=== PATIENT | female | born 1995 | race Caucasian/White ===

== ENCOUNTER → 2021-09-29 | Outpatient (CLI) | payer OTHER | LOC: COL.VAS 14:06 | DX: E84.9 Cystic fibrosis, unspecified (principal) ==

== ENCOUNTER 2023-05-13 02:00 | Emergency (ER) | payer BC ==
[~2023-05-13] VITALS: Ht 157.5 cm; Wt 64.1 kg
[~2023-05-13 02:00] MED LIST: AMOXICILLIN 50500 MG PO
[2023-05-13 02:04] VITALS: BP 197/102; PULSE 83; TEMP 98.6
[2023-05-13] MEDS ORDERED: AMOXICILLIN 8751 TAB PO (02:17)
== END 2023-05-13 02:33 | disposition home or self-care (01) ==
LOC: COL.ER 02:00
DX: H60.92 Unspecified otitis externa, left ear (principal); H66.92 Otitis media, unspecified, left ear; E10.9 Type 1 diabetes mellitus without complications

== ENCOUNTER 2023-07-06 04:40 | Emergency (ER) | payer SELFPAY ==
[~2023-07-06] VITALS: Ht 157.5 cm; Wt 63.6 kg
[~2023-07-06 04:40] MED LIST changes: +ACTIGALL 300MG300 MG PO; +AMOXICILLIN 8751 TAB PO; +APRESOLINE 25MG25 MG PO; +BUMEX2 MG PO; +COREG 25MG25 MG/TAB PO; +COZAAR 25MG25 MG/TAB PO; +CREON 120000 U-1 ECC PO; +CYMBALTA 30MG30 MG PO; +DITROPAN XL10 MG PO; +EFFEXOR 3737.5 MG/TA PO; +LEVEMIR FLEX100 U/ML SQ; +LEVEMIR100 U/ML SQ; +LEXAPRO 5MG5 MG PO; +LOKELMA10 GM PO; +LYRICA 150MG C150 MG PO; +MAG-OX 400400 MG/TAB PO; +MASON NATURAL2000 IU PO; +MELATONIN ER10 MG PO; +MULTIPLE VITAMI1 CAP PO; +NATURAL IRON65 MG PO; +NORG-EE 0.18-01 EACH PO; +NORVASC 10MG10 MG PO; +NOVOLOG FLEX100 U/ML SQ; +PRILOSEC 20MG20 MG PO; +RENVELA800 MG PO; +SINGULAIR 110 MG/TAB PO; +TRI-LO-SPRINTE1 EACH PO; +TRIKAFTA 100-51 EACH PO; +ZAROXOLYN5 MG PO; +ZYRTEC 10MG10 MG PO; +[UNRECOGNIZED DRUG - OTHER] PO
[2023-07-06] MEDS ORDERED: NORCO 325 MG-51 TAB PO (05:07)
[2023-07-06] MEDS ORDERED: LYRICA 150MG C150 MG PO (05:07)
[2023-07-06 05:19] VITALS: BP 151/77; PULSE 94; TEMP 97.4
[2023-07-07] MEDS ORDERED: ZOFRAN 4MG T4 MG/TAB PO (10:41)
== END 2023-07-06 05:19 | disposition home or self-care (01) ==
LOC: COL.ER 04:40
DX: E11.40 Type 2 diabetes mellitus with diabetic neuropathy, unspecified (principal)
CPT/HCPCS: J2270

== ENCOUNTER 2023-07-07 09:57 | Emergency (ER) | payer SELFPAY ==
[~2023-07-07] VITALS: Ht 157.5 cm; Wt 63.6 kg
[~2023-07-07 09:57] MED LIST changes: +NORCO 325 MG-51 TAB PO
[2023-07-07 10:02] VITALS: TEMP 98.3
[2023-07-07] MEDS ORDERED: ZOFRAN 4MG T4 MG/TAB PO (10:41)
[2023-07-07 10:48] VITALS: BP 146/78; PULSE 78
== END 2023-07-07 10:49 | disposition home or self-care (01) ==
LOC: COL.ER 09:57
DX: R11.2 Nausea with vomiting, unspecified (principal); E11.40 Type 2 diabetes mellitus with diabetic neuropathy, unspecified
CPT/HCPCS: J1790

== ENCOUNTER → 2023-07-12 | Outpatient (CLI) | payer OTHER ==
[~2023-07-12] MED LIST changes: +ZOFRAN 4MG T4 MG/TAB PO
[2023-07-12 11:41] LABS: BASO # 0.2 K/mm3 (0.0-0.2); BASO % 2.2 % (0.0-2.0); EOS # 0.6 K/mm3 (0.0-0.7); EOS % 6.4 % (0.0-4.0); GRAN # 5.2 K/mm3 (1.4-6.5); GRAN % 60.2 % (42.2-75.2); HEMOGLOBIN 10.2 g/dl (12.5-16.0); LYMPH # 1.8 K/mm3 (1.2-3.4); LYMPH % 20.9 % (20.0-51.0); MEAN CELL VOLUME 87 fl (80.0-100.0); MEAN CORPUSCULAR HEMOGLOBIN 31 pg (27-31); MEAN CORPUSCULAR HGB CONC 35 g/dl (33.0-37.0); MEAN PLATELET VOLUME 10.5 fl (7.4-10.4); MONO # 0.8 K/mm3 (0.1-0.6); MONO % 9.6 % (1.7-9.3); PLATELET COUNT 446 K/mm3 (130-400); REDCELL DISTRIBUTION WIDTH-CV 13.7 % (11.5-14.5)
[2023-07-12 11:46] LABS: HEMATOCRIT 28.8 % (37.0-47.0)
[2023-07-12 11:57] LABS: ALBUMIN 2.8 gm/dL (3.5-5.0); BILIRUBIN,TOTAL 0.3 mg/dL (0.2-1.2); CALCIUM 9.1 mg/dL (8.4-10.2); CREATININE, serum 3.59 mg/dL (0.57-1.11); MAGNESIUM 2.3 mg/dL (1.6-2.6); POTASSIUM 4.9 mmol/L (3.5-4.5); TOTAL PROTEIN 7.3 gm/dL (6.2-8.1)
[2023-07-12 12:21] LABS: THYROID STIMULATING HORMONE 1.345 uIU/mL (0.350-4.940)
== END ==
LOC: COL.LAB 10:45
PROVIDERS: Registered Nurse
DX: G62.9 Polyneuropathy, unspecified (principal); N18.4 Chronic kidney disease, stage 4 (severe); D64.9 Anemia, unspecified; Z79.899 Other long term (current) drug therapy

== ENCOUNTER 2023-09-19 18:27 | Emergency (ER) | payer OTHER ==
[~2023-09-19] VITALS: Ht 157.5 cm; Wt 67.3 kg
[~2023-09-19 18:27] MED LIST changes: +LEXAPRO20 MG PO
[2023-09-19 18:35] VITALS: BP 153/73; TEMP 99.7
[2023-09-19] MEDS ORDERED: DOXYCYCLINE HY100 MG PO (19:22)
[2023-09-19] MEDS ORDERED: Doxycycline Monohydrate 100 MG CAP PO ONE (19:30)
[2023-09-19 19:36] VITALS: PULSE 89
== END 2023-09-19 19:36 | disposition home or self-care (01) ==
LOC: COL.ER 18:27
DX: L03.116 Cellulitis of left lower limb (principal); E10.22 Type 1 diabetes mellitus with diabetic chronic kidney disease; I12.0 Hypertensive chronic kidney disease with stage 5 chronic kidney disease or end stage renal disease; N18.6 End stage renal disease; Z99.2 Dependence on renal dialysis

== ENCOUNTER → 2023-11-09 | Outpatient (CLI) | payer OTHER ==
[~2023-11-09] MED LIST changes: +BACTRIM DS 8001 TAB PO; +DOXYCYCLINE HY100 MG PO
== END ==
LOC: COL.RAD 09:42
DX: M25.552 Pain in left hip (principal); G89.29 Other chronic pain

== ENCOUNTER 2023-12-26 09:58 | Emergency (ER) | payer OTHER, MEDICARE ==
[~2023-12-26] VITALS: Ht 157.5 cm; Wt 68.2 kg
[2023-12-26 10:04] VITALS: BP 134/80; TEMP 98.3
[2023-12-26 10:43] VITALS: PULSE 84
== END 2023-12-26 10:44 | disposition home or self-care (01) ==
LOC: COL.ER 09:58
DX: J20.9 Acute bronchitis, unspecified (principal); N18.6 End stage renal disease; Z99.2 Dependence on renal dialysis

== ENCOUNTER 2024-01-24 15:30 | Outpatient (RCR) | payer OTHER ==
[2024-02-07] MEDS ORDERED: BACTRIM DS 8001 TAB PO (16:36)
== END 2024-02-08 | disposition home or self-care (01) ==
LOC: MKS.ESL.PT
DX: G89.29 Other chronic pain (principal); M25.552 Pain in left hip

== ENCOUNTER 2024-02-26 23:49 | Emergency (ER) | payer OTHER ==
[~2024-02-26] VITALS: Ht 162.6 cm; Wt 90.9 kg
[2024-02-26 23:52] VITALS: TEMP 98.3
--- NOTE | 2024-02-27 00:29 | NUR ---
RT CALLED TO BEDSIDE FOR RESP. DISTRESS. PT USING ACCESSORY MUSCLES AND UNABLE TO FINISH SENTENCES. BIPAP APPLIED AT 1215 16/6 R18 50%. PATIENT RESPIRATIONS REMIAIN IN THE 40'S. INTIAL VBG TAKEN PRIOR TO V60 APPLICATION. PT REMAINS IN DISTRESS. RT STILL AT BEDSIDE.
[2024-02-27] MEDS ORDERED: Bumetanide 1 MG/4 ML VIAL IV ONE ×2 (00:30→03:30)
[2024-02-27] MEDS ORDERED: LORazepam 2 MG/ML 1 ML VIAL IV ONE (00:30)
[2024-02-27 00:46] LABS: ALANINE AMINOTRANSFERASE 41 U/L (0-55); ALBUMIN 2.6 g/dL (3.5-5.0); ALKALINE PHOSPHATASE 267 U/L (40-150); ANION GAP 11 mmol/L (7-16); AST,SGOT 36 U/L (5-34); BILIRUBIN,TOTAL 0.3 mg/dL (0.2-1.2); BLOOD UREA NITROGEN 28 mg/dL (7-19); CALCIUM 8.8 mg/dL (8.4-10.2); CHLORIDE 114 mEq/L (98-107); CREATININE, serum 3.51 mg/dL (0.57-1.11); GLUCOSE 109 mg/dL (70-99); POTASSIUM 5.6 mEq/L (3.5-4.5); SODIUM 137 mEq/L (136-145); TOTAL PROTEIN 8.3 g/dl (6.2-8.1)
[2024-02-27 00:53] LABS: TROPONIN-I < 0.010 ng/mL (0.00-0.033)
[2024-02-27 01:14] LABS: BASO # 0.1 K/mm3 (0.0-0.2); EOS # 0.3 K/mm3 (0.0-0.7); EOS % 2.8 % (0.0-4.0); GRAN # 8.3 K/mm3 (1.4-6.5); GRAN % 77.5 % (42.2-75.2); LYMPH # 1.6 K/mm3 (1.2-3.4); LYMPH % 14.6 % (20.0-51.0); MEAN CELL VOLUME 96 fl (80.0-100.0); MEAN CORPUSCULAR HGB CONC 30 g/dl (33.0-37.0); MEAN PLATELET VOLUME 10.5 fl (7.4-10.4); MONO # 0.4 K/mm3 (0.1-0.6); MONO % 3.4 % (1.7-9.3); PLATELET COUNT 472 K/mm3 (130-400); RED BLOOD COUNT 3.25 M/mm3 (4.10-5.30); REDCELL DISTRIBUTION WIDTH-CV 15.4 % (11.5-14.5)
[2024-02-27 01:15] LABS: HEMATOCRIT 31.3 % (37.0-47.0); HEMOGLOBIN 9.3 g/dl (12.5-16.0); MEAN CORPUSCULAR HEMOGLOBIN 29 pg (27-31)
[2024-02-27 01:19] LABS: COLLECTION METHOD CLEAN CATCH
[2024-02-27 01:31] LABS: URINE APPEARANCE CLEAR (CLEAR/HAZY); URINE BLOOD 1+ (NEGATIVE); URINE COLOR YELLOW (YELLOW); URINE GLUCOSE TRACE (NEGATIVE); URINE KETONE NEGATIVE (NEGATIVE); URINE NITRATE NEGATIVE (NEGATIVE); URINE PROTEIN(semi-quant) 2+ (NEGATIVE); URINE UROBILINOGEN 0.2 E.U/dL (0.2-1.0)
[2024-02-27] MEDS ORDERED: Sodium Polystyrene Sulf Susp 15 GM/60 ML BOTTLE PO ONE (02:15)
[2024-02-27] MEDS ORDERED: BUMEX2 MG PO (04:25)
[2024-02-27 04:36] VITALS: BP 143/85; PULSE 80
== END 2024-02-27 04:36 | disposition home or self-care (01) ==
LOC: COL.ER 23:49
PROVIDERS: Emergency Medicine
DX: E87.70 Fluid overload, unspecified (principal); E87.5 Hyperkalemia; E10.22 Type 1 diabetes mellitus with diabetic chronic kidney disease; N18.6 End stage renal disease; Z99.2 Dependence on renal dialysis; Z79.4 Long term (current) use of insulin
CPT/HCPCS: J2060